=== PATIENT | male | born 1995 | race African-American/Black ===

== ENCOUNTER 2018-08-15 23:00 | Emergency (ER) | payer BC ==
[~2018-08-15] VITALS: Ht 172.7 cm; Wt 90.7 kg
[~2018-08-15 23:00] MED LIST: NOHOMEMEDICATIONS; NORCO 5-325 TA1 EACH PO; TOBREX5 ML OPHTHALMIC
[2018-08-16 00:03] LABS: ABSOLUTE NEUTROPHILS 6.1 thou/uL (1.4-8.2); BASOPHILS 0.9 % (0.0-2.0); EOSINOPHILS 0.2 % (0.0-3.0); HEMATOCRIT 43.6 % (42.0-52.0); LYMPHOCYTES 11.1 % (24.0-44.0); MCH 31.9 pg (26.0-34.0); MCHC 34.3 g/dL (28.0-37.0); MONOCYTES 11.6 % (1.0-8.0); PLATELET COUNT 169 thou/uL (150-400); POLYS 76.2 % (36.0-66.0); RBC 4.69 mil/uL (4.50-6.00); RDW 13.3 % (10.5-14.5)
[2018-08-16 00:07] LABS: ANION GAP 7 mmol/L (7-16); BUN 10 mg/dL (7-18); CHLORIDE 98 mmol/L (98-107); CO2 28 mmol/L (21-32); CREATININE 1.1 mg/dL (0.7-1.3); GLUCOSE 102 mg/dL (74-106); POTASSIUM 4.3 mmol/L (3.5-5.1); SODIUM 133 mmol/L (136-145)
[2018-08-16 00:15] LABS: ALBUMIN 4.1 g/dL (3.4-5.0); LIPASE 132 U/L (73-393); SGOT 39 U/L (15-37); SGPT 31 U/L (30-65); TOTAL BILIRUBIN 1.1 mg/dL (<0.1-1.0); TOTAL PROTEIN 7.9 g/dL (6.4-8.2); TROPONIN-I <0.06 ng/mL (<0.06)
[2018-08-16 01:48] LABS: URINE BILIRUBIN 1+ (Negative); URINE BLOOD NEGATIVE (Negative); URINE CLARITY CLEAR; URINE COLOR YELLOW; URINE GLUCOSE-RANDOM* NEGATIVE (Negative); URINE KETONES 3+ (Negative); URINE LEUKOCYTES NEGATIVE (Negative); URINE NITRITE NEGATIVE (Negative); URINE PROTEIN (DIPSTICK) NEGATIVE (Negative)
[2018-08-16] MEDS ORDERED: ZOFRAN ODT4 MG PO (03:27)
[2018-08-16 03:34] VITALS: BP 96/50
== END 2018-08-16 03:39 | disposition home or self-care (01) ==
LOC: ER 23:00
PROVIDERS: Emergency Medicine
DX: R10.84 Generalized abdominal pain (principal); R19.7 Diarrhea, unspecified; R51 Headache; R05 Cough; J45.909 Unspecified asthma, uncomplicated